=== PATIENT | male | born 1975 | race Caucasian/White ===

== ENCOUNTER 2017-06-04 01:49 | Emergency (ER) | payer MEDICAID, OTHER, SELFPAY ==
[2017-06-04 01:59] VITALS: BP 130/98
--- NOTE | 2017-06-04 02:03 | EDM.PDOC ---
ED HPI GENERAL MEDICAL PROBLEM - General Chief Complaint: Chemical Exposure Stated Complaint: drank anti freeze Time Seen by Provider: 06/04/17 02:03 - History of Present Illness INITIAL COMMENTS - FREE TEXT/NARRATIVE: 42-year-old male presents emergency room after he accidentally drank antifreeze. Patient thinks he drinks about 4 ounces of antifreeze. He had this in a water bottle and then he had a soda pop sit in by he fell asleep where he was working and when he awoke he reached for the bottle and it wasn't a soda bottle it was antifreeze bottle. Patient denies any drugs or alcohol at this time but states he is not thinking right and his speech is not normal. He thinks the ingestion time was about 30 minutes ago. - Related Data Allergies Allergy/AdvReac Type Severity Reaction Status Date / Time No Known Allergies Allergy Verified 06/04/17 01:59 Home Meds: Home Meds Albuterol [Proventil HFA] 6.7 gm INH Q4H PRN #1 inhaler 10/23/15 [Rx] Past Medical History - Past Health History Medical/Surgical History: Denies Medical/Surgical History Respiratory History: Reports: Asthma - Past Surgical History HEENT Surgical History: Reports: Naso-Sinus Surgery Social & Family History - Tobacco Use Smoking Status *Q: Current Every Day Smoker Years of Tobacco use: 20 Packs/Tins Daily: 1 Second Hand Smoke Exposure: No - Caffeine Use Caffeine Use: Reports: None - Recreational Drug Use Recreational Drug Use: No ED ROS GENERAL - Review of Systems Review Of Systems: See Below Constitutional: Denies: Fever, Chills HEENT: Reports: No Symptoms Respiratory: Reports: No Symptoms Cardiovascular: Reports: No Symptoms Endocrine: Reports: No Symptoms GI/Abdominal: Reports: No Symptoms : Reports: No Symptoms Musculoskeletal: Reports: No Symptoms Skin: Reports: No Symptoms Neurological: Reports: Trouble Speaking, Other (Thought abnormalities) Psychiatric: Denies: Homicidal Ideation, Suicidal Ideation Hematologic/Lymphatic: Reports: No Symptoms ED EXAM, BURN/SMOKE INHALATION - Physical Exam Exam: See Below Exam Limited By: No Limitations General Appearance: Alert, No Apparent Distress, Other (His speech is not normal he is trying to cooperate) Eye Exam: Bilateral Eye: Normal Inspection Ears (Abbreviated): Normal External Exam, Normal Canal, Normal TMs Nose: Undetermined: Normal Inspection Mouth/Throat: No: Bleeding, Dental Trauma, Dry Mucous Membrane, Pharyngeal Erythema, Throat Pain, Tonsillar Erythema, Tonsillar Exudates Head: Atraumatic, Normocephalic Neck: Normal, Supple, Non-Tender to Palpation Respiratory: No Respiratory Distress, Lungs Clear, Normal Breath Sounds Cardiovascular: Regular Rate, Rhythm, No Edema, No Murmur GI/Abdominal: Normal Bowel Sounds, Soft, Non-Tender Back Exam: Normal Inspection. No: CVA Tenderness (L), CVA Tenderness (R) Extremities: Normal Inspection, No Pedal Edema Neurological: Alert Psychiatric: Anxious Course - Vital Signs Last Recorded V/S: Last Vital Signs Temp 36.7 C 06/04/17 01:55 Pulse 89 06/04/17 01:55 Resp 18 06/04/17 01:55 BP 130/98 H 06/04/17 01:55 Pulse Ox - Orders/Labs/Meds Orders: Active Orders 24 hr Category Date Time Status EKG Documentation Completion [RC] STAT Care 06/04/17 02:36 Ordered Head wo Cont [CT] Stat Exams 06/04/17 02:36 Ordered ACETAMINOPHEN [CHEM] Stat Lab 06/04/17 02:16 Ordered COMPREHENSIVE METABOLIC PN,CMP [CHEM] Stat Lab 06/04/17 02:16 Ordered DRUG SCREEN, URINE [URCHEM] Stat Lab 06/04/17 02:16 Uncollected ETHANOL BLOOD MEDICAL [CHEM] Stat Lab 06/04/17 02:16 Ordered MAGNESIUM [CHEM] Stat Lab 06/04/17 02:16 Ordered MISC TEST Stat Lab 06/04/17 02:58 Ordered OSMOLALITY,SERUM [CHEM] Stat Lab 06/04/17 02:16 Ordered OSMOLALITY,URINE [URCHEM] Stat Lab 06/04/17 02:16 Uncollected SALICYLATE [CHEM] Stat Lab 06/04/17 02:16 Ordered UA W/MICROSCOPIC [URIN] Stat Lab 06/04/17 02:16 Uncollected Loading Dose Med 06/04/17 02:30 Ordered Fomepizole 1 gm Sodium Chloride 0.9% [Normal Saline] 100 ml IV Q12HR Sodium Chloride 0.9% [Normal Saline] 1,000 ml Med 06/04/17 03:00 Active IV ASDIRECTED Medication Orders Fomepizole 1 gm/ Sodium (Chloride) 101 mls @ 200 mls/hr IV Q12HR FERNANDA Last Admin: 06/04/17 02:54 Dose: 200 mls/hr Sodium Chloride (Normal Saline) 1,000 mls @ 125 mls/hr IV ASDIRECTED FERNANDA Last Admin: 06/04/17 02:55 Dose: 125 mls/hr Labs: Laboratory Tests 06/04/17 Range/Units 02:28 Puncture Site Lt radial ABG pH 7.42 (7.35-7.45) ABG pCO2 34.9 L (35.0-45.0) mmHg ABG pO2 97.0 (80.0-100.0) mmHg ABG HCO3 22.4 (22.0-26.0) meq/L ABG O2 Saturation 98.1 H (96.0-97.0) % ABG Base Excess -1.0 (-2-2.0) FiO2 21.00 (21.00-100.00) % Meds: Medications Generic Name Dose Route Start Last Admin Trade Name Freq PRN Reason Stop Dose Admin Fomepizole 1 gm/ Sodium 101 mls @ 200 mls/hr 06/04/17 02:30 06/04/17 02:54 Chloride IV 200 mls/hr Q12HR FERNANDA Administration Sodium Chloride 1,000 mls @ 125 mls/hr 06/04/17 03:00 06/04/17 02:55 Normal Saline IV 125 mls/hr ASDIRECTED FERNANDA Administration Discontinued Medications Generic Name Dose Route Start Last Admin Trade Name Freq PRN Reason Stop Dose Admin Lactated Ringer's 1,000 mls @ 125 mls/hr 06/04/17 02:30 06/04/17 02:33 Ringers, Lactated IV 125 mls/hr ASDIRECTED [facility] Administration - Re-Assessments/Exams Free Text/Narrative Re-Assessment/Exam: 06/04/17 03:14 He is reviewed with poison control will start the patient on Antizol with possible dialysis needed and a remote location it was decided the patient's best interest to arrange transport to [facility] in [facility]. Head CT and labs pending at this point we cannot obtain an ethylene glycol level here however this will be a send out and lab will attempt to calculate the osmolar gap. Case discussed with Dr. Wheeler in the emergency room at [facility]. Departure - Departure Time of Disposition: 02:30 Disposition: DC/Tfer to Acute Hospital 02 Clinical Impression: Ethylene glycol poisoning - Discharge Information Forms: ED Department Discharge - My Orders Last 24 Hours: My Active Orders 06/04/17 02:16 ACETAMINOPHEN [CHEM] Stat COMPREHENSIVE METABOLIC PN,CMP [CHEM] Stat DRUG SCREEN, URINE [URCHEM] Stat ETHANOL BLOOD MEDICAL [CHEM] Stat MAGNESIUM [CHEM] Stat OSMOLALITY,SERUM [CHEM] Stat OSMOLALITY,URINE [URCHEM] Stat SALICYLATE [CHEM] Stat UA W/MICROSCOPIC [URIN] Stat 06/04/17 02:30 Loading Dose Fomepizole 1 gm Sodium Chloride 0.9% [Normal Saline] 100 ml IV Q12HR 06/04/17 02:36 EKG Documentation Completion [RC] STAT Head wo Cont [CT] Stat 06/04/17 02:58 MISC TEST Stat 06/04/17 03:00 Sodium Chloride 0.9% [Normal Saline] 1,000 ml IV ASDIRECTED - Assessment/Plan Last 24 Hours: My Active Orders 06/04/17 02:16 ACETAMINOPHEN [CHEM] Stat COMPREHENSIVE METABOLIC PN,CMP [CHEM] Stat DRUG SCREEN, URINE [URCHEM] Stat ETHANOL BLOOD MEDICAL [CHEM] Stat MAGNESIUM [CHEM] Stat OSMOLALITY,SERUM [CHEM] Stat OSMOLALITY,URINE [URCHEM] Stat SALICYLATE [CHEM] Stat UA W/MICROSCOPIC [URIN] Stat 06/04/17 02:30 Loading Dose Fomepizole 1 gm Sodium Chloride 0.9% [Normal Saline] 100 ml IV Q12HR 06/04/17 02:36 EKG Documentation Completion [RC] STAT Head wo Cont [CT] Stat 06/04/17 02:58 MISC TEST Stat 06/04/17 03:00 Sodium Chloride 0.9% [Normal Saline] 1,000 ml IV ASDIRECTED
[2017-06-04] MEDS ORDERED: Lactated Ringers 1,000 ML IV SCH (02:30)
[2017-06-04] MEDS ORDERED: Sodium Chloride 0.9% 1,000 ML IV SCH (03:00)
[2017-06-04 03:38] LABS: ACETAMINOPHEN 0 ug/mL (10-30)
--- NOTE | 2017-06-04 09:09 | CT ---
Head CT Technique: Multiple axial sections through the brain were obtained. Intravenous contrast was not utilized. Findings: Motion artifact is present. Within this limitation, no abnormal parenchymal densities are seen at this time. No evidence of intracranial hemorrhage. No midline shift or mass effect is seen. Bone window settings were reviewed which show no acute calvarial abnormality. Mucosal thickening is seen within portions of the ethmoid sinuses. Impression: 1. Mild sinus findings which are likely pre-existing and chronic. 2. Motion artifact. 3. No acute intracranial abnormality is identified. Diagnostic code #2 I agree with preliminary report issued by [facility] ([facility] report finalized on 06/04/17, 4:41 AM Central Time)
== END 2017-06-04 03:49 ==
LOC: JD.ED 01:49
DX: T15.81XA Foreign body in other and multiple parts of external eye, right eye, initial encounter (principal)
CPT/HCPCS: 36415; 36600; 70450; 80053; 80306; 81001; 82803; 83735; 83930; 83935; 93005; 96361; 96365; 99285; G0480; J1451; J7030; J7040; J7120; 93010; 99284

== ENCOUNTER 2018-11-05 16:50 | Emergency (ER) | payer BC, MEDICAID ==
[2018-11-05] MEDS ORDERED: Sodium Chloride 0.9% 10 ML Syringe FLUSH PRN (17:50)
[2018-11-05] MEDS ORDERED: Atropine/Diphenoxylate 0.025-2.5 MG Tab PO ONE (17:51)
[2018-11-05] MEDS ORDERED: Sodium Chloride 0.9% 1,000 ML IV SCH ×2 (18:00→19:15)
--- NOTE | 2018-11-05 18:15 | EDM.PDOC ---
<Suraj,Fransico Rebecca - Last Filed: 11/05/18 17:52> ED HPI GENERAL MEDICAL PROBLEM - General Chief Complaint: Fever Stated Complaint: FLU SX Time Seen by Provider: 11/05/18 17:32 Source of Information: Reports: Patient, Family, RN Notes Reviewed - History of Present Illness INITIAL COMMENTS - FREE TEXT/NARRATIVE: 43 year old male presented to the ER with complaints of cold symptoms with diarrhea for the past week. He "felt sick" with the stomach flu and then it moved to a cold. He developed a fever and increased palpitations today. He has has been taking pepto for the the diarrhea last dose was about 3 hours ago. The palpitations are what makes him worried. They started out mild but have intensified and became more sharp. He is not sure what is going on. His blood pressure at this time is elevate 150/100's. He does have nasal congestion, ears have been fine until examined now the left one does hurt a little. Onset: Today (fever and increased intensity with the palpitations), Gradual ( Has had symptoms of gastric upset and cold for the past week.) Onset Date: 11/05/18 - Related Data Allergies Allergy/AdvReac Type Severity Reaction Status Date / Time No Known Allergies Allergy Verified 11/05/18 17:12 Home Meds: Home Meds Diphenoxylate HCl/Atropine [Lomotil] 1 tab PO Q6H PRN #12 tablet 11/05/18 [Rx] Magnesium Chloride [Slow-Mag] 71.5 mg PO BID 5 Days #10 tablet. 11/05/18 [Rx] Past Medical History - Past Health History Medical/Surgical History: Denies Medical/Surgical History Respiratory History: Reports: Asthma - Past Surgical History HEENT Surgical History: Reports: Naso-Sinus Surgery Social & Family History - Tobacco Use Smoking Status *Q: Former Smoker Used Tobacco, but Quit: Yes Month/Year Tobacco Last Used: 2019 - Caffeine Use Caffeine Use: Reports: Coffee - Recreational Drug Use Recreational Drug Use: No ED ROS GENERAL - Review of Systems Review Of Systems: See Below Constitutional: Reports: Fever, Malaise HEENT: Reports: Rhinitis Cardiovascular: Reports: Palpitations Endocrine: Reports: Fatigue GI/Abdominal: Reports: Diarrhea, Decreased Appetite : Reports: No Symptoms Musculoskeletal: Reports: No Symptoms Skin: Reports: No Symptoms Neurological: Reports: No Symptoms Psychiatric: Reports: No Symptoms Hematologic/Lymphatic: Reports: No Symptoms Immunologic: Reports: No Symptoms ED EXAM, GI/ABD - Physical Exam Exam: See Below Exam Limited By: No Limitations General Appearance: Alert, WD/WN, No Apparent Distress Eyes: Bilateral: Normal Appearance, EOMI Ears: Normal External Exam, Normal Canal (Left ear does have a small area of redness noted midcanal), Hearing Grossly Normal, Normal TMs (Left TM is injected at the 100 o'clock position. ) Nose: Normal Inspection, Normal Mucosa, No Blood, Nasal Drainage (White mucous noted ) Throat/Mouth: Normal Inspection, Normal Lips, Normal Teeth, Normal Gums, Normal Voice, No Airway Compromise Head: Atraumatic, Normocephalic Neck: Normal Inspection, Supple, Non-Tender, Full Range of Motion. No: Lymphadenopathy (L), Lymphadenopathy (R) Respiratory/Chest: No Respiratory Distress, Lungs Clear, Normal Breath Sounds, No Accessory Muscle Use, Chest Non-Tender Cardiovascular: Normal Peripheral Pulses, Regular Rate, Rhythm, No Edema, No Gallop, No JVD, No Murmur, No Rub GI/Abdominal Exam: Normal Bowel Sounds (hyperactive ), Soft, Non-Tender, No Organomegaly (Male) Exam: Deferred Rectal (Males) Exam: Deferred Back Exam: Normal Inspection, Full Range of Motion Extremities: Normal Inspection, Normal Range of Motion, Non-Tender, No Pedal Edema, Normal Capillary Refill Neurological: Alert, Oriented, CN II-XII Intact, Normal Cognition, Normal Gait, No Motor/Sensory Deficits Psychiatric: Normal Affect, Normal Mood Skin Exam: Warm, Dry, Intact, Normal Color, No Rash Lymphatic: No Adenopathy Course - Vital Signs Last Recorded V/S: Last Vital Signs Temp 100.2 F 11/05/18 17:11 Pulse 83 11/05/18 17:11 Resp 16 11/05/18 17:11 BP 166/102 H 11/05/18 17:11 Pulse Ox 95 11/05/18 17:11 - Orders/Labs/Meds Orders: Active Orders 24 hr Category Date Time Status Lisinopril [Prinivil] Med 11/05/18 19:45 Active 5 mg PO DAILY Sodium Chloride 0.9% [Normal Saline] 1,000 ml Med 11/05/18 18:00 Active IV ASDIRECTED Sodium Chloride 0.9% [Normal Saline] 1,000 ml Med 11/05/18 19:15 Active IV ASDIRECTED Sodium Chloride 0.9% [Saline Flush] Med 11/05/18 17:50 Active 10 ml FLUSH ASDIRECTED PRN Saline Lock Insert [OM.PC] Routine Oth 11/05/18 17:50 Ordered Medication Orders Sodium Chloride (Normal Saline) 1,000 mls @ 999 mls/hr IV ASDIRECTED FERNANDA Last Admin: 11/05/18 18:09 Dose: 999 mls/hr Sodium Chloride (Normal Saline) 1,000 mls @ 999 mls/hr IV ASDIRECTED FERNANDA Last Admin: 11/05/18 19:16 Dose: 999 mls/hr Lisinopril (Prinivil) 5 mg PO DAILY FERNANDA Sodium Chloride (Saline Flush) 10 ml FLUSH ASDIRECTED PRN PRN Reason: Keep Vein Open Last Admin: 11/05/18 18:06 Dose: 10 ml Labs: Laboratory Tests 11/05/18 11/05/18 Range/Units 18:05 18:05 WBC 4.51 (4.23-9.07) K/mm3 RBC 4.54 L (4.63-6.08) M/mm3 Hgb 14.4 (13.7-17.5) gm/L Hct 42.1 (40.1-51.0) % MCV 92.7 H (79.0-92.2) fl MCH 31.7 (25.7-32.2) pg MCHC 34.2 (32.2-35.5) g/dl RDW Std Deviation 42.0 (35.1-43.9) fL Plt Count 192 (163-337) K/mm3 MPV 10.5 (9.4-12.3) fl Neut % (Auto) 70.5 H (34.0-67.9) % Lymph % (Auto) 14.4 L (21.8-53.1) % Jessamine % (Auto) 10.9 (5.3-12.2) % Eos % (Auto) 3.8 (0.8-7.0) Baso % (Auto) 0.2 (0.1-1.2) % Neut # (Auto) 3.18 (1.78-5.38) K/mm3 Lymph # (Auto) 0.65 L (1.32-3.57) K/mm3 Jessamine # (Auto) 0.49 (0.30-0.82) K/mm3 Eos # (Auto) 0.17 (0.04-0.54) K/mm3 Baso # (Auto) 0.01 (0.01-0.08) K/mm3 Sodium 139 (136-145) mEq/L Potassium 3.7 (3.5-5.1) mEq/L Chloride 102 (98-107) mEq/L Carbon Dioxide 25 (21-32) mEq/L Anion Gap 15.7 H (5-15) BUN 13 (7-18) mg/dL Creatinine 0.9 (0.7-1.3) mg/dL Est Cr Clr Drug Dosing 113.88 mL/min Estimated GFR (MDRD) > 60 (>60) mL/min BUN/Creatinine Ratio 14.4 (14-18) Glucose 90 (74-106) mg/dL Calcium 8.3 L (8.5-10.1) mg/dL Magnesium 1.4 L (1.8-2.4) mg/dl Total Bilirubin 0.6 (0.2-1.0) mg/dL AST 41 H (15-37) U/L ALT 55 (16-63) U/L Alkaline Phosphatase 99 (46-116) U/L Total Protein 7.6 (6.4-8.2) g/dl Albumin 3.8 (3.4-5.0) g/dl Globulin 3.8 gm/dL Albumin/Globulin Ratio 1.0 (1-2) Meds: Medications Generic Name Dose Route Start Last Admin Trade Name Freq PRN Reason Stop Dose Admin Sodium Chloride 1,000 mls @ 999 mls/hr 11/05/18 18:00 11/05/18 18:09 Normal Saline IV 999 mls/hr ASDIRECTED FERNANDA Administration Sodium Chloride 1,000 mls @ 999 mls/hr 11/05/18 19:15 11/05/18 19:16 Normal Saline IV 999 mls/hr ASDIRECTED FERNANDA Administration Lisinopril 5 mg 11/05/18 19:45 Prinivil PO DAILY FERNANDA Sodium Chloride 10 ml 11/05/18 17:50 11/05/18 18:06 Saline Flush FLUSH 10 ml ASDIRECTED PRN Administration Keep Vein Open Discontinued Medications Generic Name Dose Route Start Last Admin Trade Name Freq PRN Reason Stop Dose Admin Diphenoxylate HCl/Atropine 2 tab 11/05/18 17:51 11/05/18 18:04 Lomotil 0.025-2.5 Mg PO 11/05/18 17:52 2 tab ONETIME ONE Administration Ibuprofen 800 mg 11/05/18 19:11 11/05/18 19:16 Motrin PO 11/05/18 19:12 800 mg ONETIME ONE Administration Magnesium Oxide 400 mg 11/05/18 19:00 11/05/18 19:13 Magnesium Oxide PO 11/05/18 19:01 400 mg ONETIME ONE Administration Departure - Departure Disposition: Home, Self-Care 01 Clinical Impression: Dehydration, Hypomagnesemia Diarrhea Qualifiers: Diarrhea type: unspecified type Qualified Code(s): R19.7 - Diarrhea, unspecified - Discharge Information Prescriptions: Diphenoxylate HCl/Atropine [Lomotil] 1 tab PO Q6H PRN #12 tablet PRN Reason: Diarrhea Magnesium Chloride [Slow-Mag] 71.5 mg PO BID 5 Days #10 tablet.dr Instructions: Diarrhea, Adult, Hypomagnesemia, Food Choices to Help Relieve Diarrhea, Adult, Dehydration, Adult, [id number] Referrals: Jordin Peoples MD [Primary Care Provider] - Forms: ED Department Discharge Additional Instructions: You have been diagnosis with dehydration, low magnesium, diarrhea and fever unknown cause. Take Lomotil as needed for diarrhea. - My Orders Last 24 Hours: My Active Orders 11/05/18 17:50 Sodium Chloride 0.9% [Saline Flush] 10 ml FLUSH ASDIRECTED PRN Saline Lock Insert [OM.PC] Routine 11/05/18 18:00 Sodium Chloride 0.9% [Normal Saline] 1,000 ml IV ASDIRECTED 11/05/18 19:15 Sodium Chloride 0.9% [Normal Saline] 1,000 ml IV ASDIRECTED 11/05/18 19:45 Lisinopril [Prinivil] 5 mg PO DAILY - Assessment/Plan Last 24 Hours: My Active Orders 11/05/18 17:50 Sodium Chloride 0.9% [Saline Flush] 10 ml FLUSH ASDIRECTED PRN Saline Lock Insert [OM.PC] Routine 11/05/18 18:00 Sodium Chloride 0.9% [Normal Saline] 1,000 ml IV ASDIRECTED 11/05/18 19:15 Sodium Chloride 0.9% [Normal Saline] 1,000 ml IV ASDIRECTED 11/05/18 19:45 Lisinopril [Prinivil] 5 mg PO DAILY <Evelio Potts - Last Filed: 11/05/18 19:29> Course - Radiology Interpretation Free Text/Narrative:: 43-year-old male presents to the ED for evaluation of 1 week history of illness gradually getting worse. He has had flulike symptoms with nausea vomiting and diarrhea but today developed fever and some chills.. He also appreciates palpitations. He has hypertension but is in denial about using medication to treat it. She was seen in consultation with nurse practitioner Manuela Blanc . His ECG does not show any signs of cardiac arrhythmia. Plan he appears volume depleted. He will have IV fluids given and labs to be done. - Re-Assessments/Exams Free Text/Narrative Re-Assessment/Exam: 11/05/18 18;30: I have reviewed the lab results. He is mildly hypomagnesemic and he has received 400 mg of magnesium orally. She he he will also be started on Slow-Mag 1 tablet daily. Advised that his blood pressure is too high and in fact he is going to require antihypertensive treatment. He is feeling better after 2 L of IV fluids. Influenza screen is negative. I agree with treatment plan and disposition. - My Orders Last 24 Hours: My Active Orders 11/05/18 17:50 Sodium Chloride 0.9% [Saline Flush] 10 ml FLUSH ASDIRECTED PRN Saline Lock Insert [OM.PC] Routine 11/05/18 18:00 Sodium Chloride 0.9% [Normal Saline] 1,000 ml IV ASDIRECTED 11/05/18 19:15 Sodium Chloride 0.9% [Normal Saline] 1,000 ml IV ASDIRECTED 11/05/18 19:45 Lisinopril [Prinivil] 5 mg PO DAILY - Assessment/Plan Last 24 Hours: My Active Orders 11/05/18 17:50 Sodium Chloride 0.9% [Saline Flush] 10 ml FLUSH ASDIRECTED PRN Saline Lock Insert [OM.PC] Routine 11/05/18 18:00 Sodium Chloride 0.9% [Normal Saline] 1,000 ml IV ASDIRECTED 11/05/18 19:15 Sodium Chloride 0.9% [Normal Saline] 1,000 ml IV ASDIRECTED 11/05/18 19:45 Lisinopril [Prinivil] 5 mg PO DAILY <Manuela Blanc - Last Filed: 11/05/18 19:48> ED HPI GENERAL MEDICAL PROBLEM - History of Present Illness INITIAL COMMENTS - FREE TEXT/NARRATIVE: He has a history of high B/P but doesn't take anything for it. He denies any abdominal pain, chest pain or SOB. Duration: Getting Worse Location: Reports: Abdomen Quality: Reports: Ache Severity: Mild Improves with: Reports: None Worsens with: Reports: None Associated Symptoms: Reports: Fever/Chills, Other (diarrhea and body aches.). Denies: Nausea/Vomiting, Rash ED ROS GENERAL - Review of Systems Review Of Systems: See Below Course - Re-Assessments/Exams Free Text/Narrative Re-Assessment/Exam: 11/05/18 19:13 43 y/o male presented to ER with cc having diarrhea not feeling well for the past week. He had a new onset fever today along with palpitations. His WBC 4.51 H & H 14.4/42.1 Na+ 139 K+ 3.7 Bun 13 creatine 0.9 Magnesium 1.4. He received 2 LT NS, magnesium and Lomotil and his condition improved. I will discharge home with slow-mag and Lomotil. I instructed him to increase his fluid intake. Instructed him to follow up with his PCP for further evaluation and treatment of his HTN. Patient verbalized understanding and is comfortable with plan for discharge. He is stable at time of discharge. Instructed him to return to the ER for any new or acute worsening symptoms. Departure - Departure Time of Disposition: 19:48 Condition: Good - Discharge Information *PRESCRIPTION DRUG MONITORING PROGRAM REVIEWED*: Not Applicable *COPY OF PRESCRIPTION DRUG MONITORING REPORT IN PATIENT JOSEPHINE: Not Applicable
[2018-11-05] MEDS ORDERED: Magnesium Oxide 400 MG Tab PO ONE (19:00)
[2018-11-05] MEDS ORDERED: Ibuprofen 800 MG Tab PO ONE (19:11)
[2018-11-05] MEDS ORDERED: Lisinopril 10 MG Tab PO SCH (19:45)
[2018-11-05 20:28] VITALS: BP 139/87
== END 2018-11-05 20:30 | disposition home or self-care (01) ==
LOC: JD.ED 16:50
DX: E86.0 Dehydration (principal); R19.7 Diarrhea, unspecified; E83.42 Hypomagnesemia
CPT/HCPCS: 36415; 80053; 83735; 85025; 87804; 96360; 96361; 99283; A9270; J7040; 99284

== ENCOUNTER 2020-11-13 10:34 | Emergency (ER) | payer BC, MEDICAID ==
[2020-11-13 10:42] VITALS: PULSE 82
[2020-11-13] MEDS ORDERED: Aspirin 81 MG Tab.Chew PO ONE (10:55)
--- NOTE | 2020-11-13 10:58 | EDM.PDOC ---
ED HPI GENERAL MEDICAL PROBLEM - General Chief Complaint: Chest Pain Stated Complaint: CHEST PAIN Time Seen by Provider: 11/13/20 10:44 Source of Information: Reports: Patient, Family (spouse) History Limitations: Reports: No Limitations - History of Present Illness INITIAL COMMENTS - FREE TEXT/NARRATIVE: 45-year-old male presents to the ED complaining of diffuse left precordial chest pain that started about an hour ago. He describes as a tight squeezing sensation in his left upper anterior chest. He was sitting watching TV with his when this occurred. He states he has had it before. He has a history of frequent premature ventricular contractions and was aware of his heart skipping at this time. Did not feel dizzy lightheaded or short of breath and did not break out in a sweat. No associated nausea or vomiting. Pain is still present but he states is somewhat better rates it as a 4 out of 10 at present. Triage ECG shows no signs of acute ischemia. There are frequent unifocal PVCs. He denies any chest wall injury. He has no history of COVID-19 illness. Patient takes no home medications. He denies any significant problems with GERD or reflux. Onset: Today, Sudden Onset Date: 11/13/20 Onset Time: 09:40 Duration: Minutes:, Constant, Improving Location: Reports: Chest Quality: Reports: Ache (Left precordial chest with no radiation of the pain elsewhere.), Other Severity: Moderate (Wheezing pressure type pain.) Improves with: Reports: None Worsens with: Reports: None (10.) Context: Denies: Activity, Exercise, Lifting, Sick Contact, Trauma, Other Associated Symptoms: Reports: Chest Pain. 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 [No Known Home Meds] 11/13/20 [History] Past Medical History - Past Health History Medical/Surgical History: Denies Medical/Surgical History Cardiovascular History: Reports: Hypertension Respiratory History: Reports: Asthma - Past Surgical History HEENT Surgical History: Reports: Naso-Sinus Surgery Social & Family History - Tobacco Use Tobacco Use Status *Q: Current Every Day Tobacco User Years of Tobacco use: 20 Packs/Tins Daily: 1 - Caffeine Use Caffeine Use: Reports: Coffee - Recreational Drug Use Recreational Drug Use: No - Living Situation & Occupation Living situation: Reports: Occupation: Unemployed ED ROS GENERAL - Review of Systems Review Of Systems: See Below Constitutional: Reports: No Symptoms HEENT: Reports: No Symptoms Respiratory: Reports: No Symptoms Cardiovascular: Reports: Chest Pain Endocrine: Reports: No Symptoms (See history of present illness) GI/Abdominal: Reports: No Symptoms : Reports: No Symptoms Musculoskeletal: Reports: No Symptoms Skin: Reports: No Symptoms Neurological: Reports: No Symptoms Psychiatric: Reports: No Symptoms Hematologic/Lymphatic: Reports: No Symptoms Immunologic: Reports: No Symptoms ED EXAM, GENERAL - Physical Exam Exam: See Below Exam Limited By: No Limitations General Appearance: Alert, WD/WN, No Apparent Distress, Other (Temperature is 36.3 degrees. Heart rate 82 and sinus respiratory is 14 O2 sats 100% room air. BP 160/98 mildly elevated.) Eye Exam: Bilateral Eye: Normal Inspection (No scleral icterus or blepharal pallor.), PERRL Throat/Mouth: Normal Inspection, Normal Lips, Normal Oropharynx Head: Atraumatic, Normocephalic Neck: Normal Inspection, Supple, Non-Tender, Full Range of Motion. No: Lymphadenopathy (L), Lymphadenopathy (R) Respiratory/Chest: No Respiratory Distress, Lungs Clear, Normal Breath Sounds, No Accessory Muscle Use, Chest Non-Tender, Other (Wall tenderness elicited mildly over palpation of the fourth rib midclavicular line left side.) Cardiovascular: Normal Peripheral Pulses, Regular Rate, Rhythm, No Edema, No Gallop, No Murmur, No Rub Peripheral Pulses: 3+: Carotid (L), Carotid (R), Posterior Tibial (L), Posterior Tibial (R), Dorsalis Pedis (L), Dorsalis Pedis (R) GI/Abdominal: Normal Bowel Sounds, Soft, Non-Tender, No Organomegaly, No Distention, No Abnormal Bruit, Other (No surgical scars.) (Male) Exam: No Hernia Back Exam: Normal Inspection, Full Range of Motion. No: CVA Tenderness (L), CVA Tenderness (R) Extremities: Normal Inspection, Normal Range of Motion, Non-Tender, No Pedal Edema, Normal Capillary Refill Neurological: Alert, Oriented, CN II-XII Intact, Normal Cognition Psychiatric: Normal Affect, Normal Mood Skin Exam: Warm, Intact, Normal Color, No Rash #1 Interpretation EKG Date: 11/13/20 Time: 10:37 Rhythm: NSR Rate (Beats/Min): 83 (Multifocal PVCs occasional) [place]: Normal P-Wave: Enlarged (Left atrial hypertrophy pattern) QRS: Normal ST-T: Other (Diffuse repolarization pattern nonspecific T wave flattening aVL) EKG Interpretation Comments: Abnormal ECG with no signs of ischemia. Course - Vital Signs Last Recorded V/S: Last Vital Signs Temp 36.3 C 11/13/20 10:39 Pulse 82 11/13/20 10:39 Resp 17 11/13/20 13:20 BP 123/68 11/13/20 13:20 Pulse Ox 97 11/13/20 13:20 - Orders/Labs/Meds Orders: Active Orders 24 hr Category Date Time Status Dextrose 5%-0.9% NaCl [Dextrose 5%-Normal Saline] 1,000 Med 11/13/20 11:00 Active ml IV ASDIRECTED Ketorolac [Toradol] Med 11/13/20 11:30 Active 30 mg IVPUSH ONETIME Nitroglycerin/D5W [Nitroglycerin 25 MG/D5W 250 ML] Med 11/13/20 11:00 Active 25 mg in 250 ml IV TITRATE Medication Orders Dextrose/Sodium Chloride (Dextrose 5%-Normal Saline) 1,000 mls @ 150 mls/hr IV ASDIRECTED FERNANDA Last Admin: 11/13/20 11:12 Dose: 150 mls/hr Documented by: RUTH ANN Nitroglycerin/Dextrose (Nitroglycerin 25 Mg/D5w 250 Ml) 25 mg in 250 mls @ 6 mls/hr IV TITRATE FERNANDA Last Admin: 11/13/20 11:10 Dose: 10 mcg/min, 6 mls/hr Documented by: RUTH ANN Ketorolac Tromethamine (Ketorolac 30 Mg/Ml Sdv) 30 mg IVPUSH ONETIME [facility] Labs: Laboratory Tests 11/13/20 11/13/20 11/13/20 Range/Units 11:14 11:14 11:14 WBC 4.09 L (4.23-9.07) K/mm3 RBC 4.71 (4.63-6.08) M/mm3 Hgb 14.5 (13.7-17.5) gm/dl Hct 43.5 (40.1-51.0) % MCV 92.4 H (79.0-92.2) fl MCH 30.8 (25.7-32.2) pg MCHC 33.3 (32.2-35.5) g/dl RDW Std Deviation 45.7 H (35.1-43.9) fL Plt Count 202 (163-337) K/mm3 MPV 10.2 (9.4-12.3) fl Neut % (Auto) 50.8 (34.0-67.9) % Lymph % (Auto) 32.8 (21.8-53.1) % [place] % (Auto) 12.5 H (5.3-12.2) % Eos % (Auto) 3.7 (0.8-7.0) Baso % (Auto) 0.2 (0.1-1.2) % Neut # (Auto) 2.08 (1.78-5.38) K/mm3 Lymph # (Auto) 1.34 (1.32-3.57) K/mm3 [place] # (Auto) 0.51 (0.30-0.82) K/mm3 Eos # (Auto) 0.15 (0.04-0.54) K/mm3 Baso # (Auto) 0.01 (0.01-0.08) K/mm3 PT 10.9 (9.7-12.0) SECONDS INR 1.02 APTT 25.7 (21.7-31.4) SECONDS D-Dimer, Quantitative (0.19-0.50) mg/L Sodium 141 (136-145) mEq/L Potassium 4.4 (3.5-5.1) mEq/L Chloride 103 (98-107) mEq/L Carbon Dioxide 30 (21-32) mEq/L Anion Gap 12.4 (5-15) BUN 17 (7-18) mg/dL Creatinine 0.9 (0.7-1.3) mg/dL Est Cr Clr Drug Dosing 111.56 mL/min Estimated GFR (MDRD) > 60 (>60) mL/min BUN/Creatinine Ratio 18.9 H (14-18) Glucose 104 (74-106) mg/dL Calcium 8.3 L (8.5-10.1) mg/dL Magnesium 1.7 L (1.8-2.4) mg/dl Total Bilirubin 0.5 (0.2-1.0) mg/dL AST 17 (15-37) U/L ALT 38 (16-63) U/L Alkaline Phosphatase 104 (46-116) U/L CK-MB (CK-2) 0.8 (0-3.6) ng/ml Troponin I < 0.017 (0.00-0.056) ng/mL C-Reactive Protein 0.7 (<1.0) mg/dL NT-Pro-B Natriuret Pep (0-125) pg/mL Total Protein 7.5 (6.4-8.2) g/dl Albumin 3.7 (3.4-5.0) g/dl Globulin 3.8 gm/dL Albumin/Globulin Ratio 1.0 (1-2) 11/13/20 11/13/20 Range/Units 11:14 11:14 WBC (4.23-9.07) K/mm3 RBC (4.63-6.08) M/mm3 Hgb (13.7-17.5) gm/dl Hct (40.1-51.0) % MCV (79.0-92.2) fl MCH (25.7-32.2) pg MCHC (32.2-35.5) g/dl RDW Std Deviation (35.1-43.9) fL Plt Count (163-337) K/mm3 MPV (9.4-12.3) fl Neut % (Auto) (34.0-67.9) % Lymph % (Auto) (21.8-53.1) % [place] % (Auto) (5.3-12.2) % Eos % (Auto) (0.8-7.0) Baso % (Auto) (0.1-1.2) % Neut # (Auto) (1.78-5.38) K/mm3 Lymph # (Auto) (1.32-3.57) K/mm3 [place] # (Auto) (0.30-0.82) K/mm3 Eos # (Auto) (0.04-0.54) K/mm3 Baso # (Auto) (0.01-0.08) K/mm3 PT (9.7-12.0) SECONDS INR APTT (21.7-31.4) SECONDS D-Dimer, Quantitative < 0.19 L (0.19-0.50) mg/L Sodium (136-145) mEq/L Potassium (3.5-5.1) mEq/L Chloride (98-107) mEq/L Carbon Dioxide (21-32) mEq/L Anion Gap (5-15) BUN (7-18) mg/dL Creatinine (0.7-1.3) mg/dL Est Cr Clr Drug Dosing mL/min Estimated GFR (MDRD) (>60) mL/min BUN/Creatinine Ratio (14-18) Glucose (74-106) mg/dL Calcium (8.5-10.1) mg/dL Magnesium (1.8-2.4) mg/dl Total Bilirubin (0.2-1.0) mg/dL AST (15-37) U/L ALT (16-63) U/L Alkaline Phosphatase (46-116) U/L CK-MB (CK-2) (0-3.6) ng/ml Troponin I (0.00-0.056) ng/mL C-Reactive Protein (<1.0) mg/dL NT-Pro-B Natriuret Pep 27 (0-125) pg/mL Total Protein (6.4-8.2) g/dl Albumin (3.4-5.0) g/dl Globulin gm/dL Albumin/Globulin Ratio (1-2) Meds: Medications Generic Name Dose Route Start Last Admin Trade Name Freq PRN Reason Stop Dose Admin Dextrose/Sodium Chloride 1,000 mls @ 150 mls/hr 11/13/20 11:00 11/13/20 11:12 Dextrose 5%-Normal Saline IV 150 mls/hr ASDIRECTED FERNANDA Administration Nitroglycerin/Dextrose 25 mg in 250 mls @ 6 mls/hr 11/13/20 11:00 11/13/20 11:10 Nitroglycerin 25 Mg/D5w 250 Ml IV 10 mcg/min TITRATE FERNADNA 6 mls/hr Administration 10 MCG/MIN Ketorolac Tromethamine 30 mg 11/13/20 11:30 Ketorolac 30 Mg/Ml Sdv IVPUSH ONETIME FERNANDA Discontinued Medications Generic Name Dose Route Start Last Admin Trade Name Isamar PRN Reason Stop Dose Admin Aspirin 324 mg 11/13/20 10:55 11/13/20 11:12 Aspirin 81 Mg Tab.Chew PO 11/13/20 10:56 324 mg ONETIME ONE Administration - Radiology Interpretation Free Text/Narrative:: 45-year-old male presents to the ED with a 1 hour history of left precordial chest squeezing pressure discomfort. Patient states he is known to have frequent premature ventricular contractions which bother him intermittently. He was sitting watching TV when this came on. No recent travel history to be concerning for DVT. No history of DVT. No history of known coronary artery disease. He is a non-smoker. Examination is completely normal other than slight pain on palpation over the fourth rib midclavicular line left side. Lungs are clear to all station percussion. ECG shows occasional unifocal PVCs. He does not show any signs of ischemia. Plan for aspirins chewed for total of 324 mg. Nitroglycerin drip at 10 mcg/min. Toradol 30 mg IV for pain relief. Chest x-ray portable. Routine labs including cardiac markers and D-dimer. - Re-Assessments/Exams Free Text/Narrative Re-Assessment/Exam: 11/13/20 11:45: Chest x-ray is done portably. He does have mild cardiomegaly and slight bulbous heart. There is evidence of mild diffuse vascular congestion pattern with no pleural effusion. No true pulmonary infiltrate evident.White count is normal at 4.09. The differential shows 50.8% neutrophils on the auto differential. Hemoglobin 14.5 with hematocrit of 43.5. MCV is slightly elevat ed at 92.4. Platelet count 202,000. Sodium 141 with potassium of 4.4 chloride 103 with a bicarb of 30. Anion gap is 12.4 with a BUN of 17 and a creatinine of 0.9 GFR is greater than 60. Glucose is 104 with a calcium of 8.3 magnesium slightly low at 1.7. Liver function normal. CK-MB fraction 0.8 with a troponin I of less than 0.017. C-reactive protein is 0.7 total protein 7.5. Due to the appearance of vascular congestion on chest x-ray a serum BNP will be ordered at this time 11/13/20 12:15: Precordial chest pain is completely gone at this point time. His monitor does continue to show intermittent unifocal PVCs. O2 sats are 96 to 97% on room air BP 112/66. Awaiting his BNP. . 11/13/20 12:43 BNP is low at 27. Feeling fine. He will therefore be discharged to home. He has plans to arrange for cardiology consultation as he has been seen by them in the past. His heart is a bit enlarged on chest x-ray which may be due to magnification due to portable technique. Departure - Departure Time of Disposition: 12:48 Disposition: Home, Self-Care 01 Reason for Transfer *Q: Other Condition: Fair Clinical Impression: Non-cardiac chest pain Instructions: Nonspecific Chest Pain, Adult Referrals: Jordin Peoples MD [Primary Care Provider] - Forms: ED Department Discharge Additional Instructions: Evaluation in the emergency room today in regards to the development of left precordial chest pain which was quite squeezing and intense while at home doing nothing this morning. ECG did not show any acute signs of injury to the heart muscle. Chest x-ray shows the heart is perhaps slightly enlarged on chest x-ray but it can be magnified on portable technique. All of the rest of the lab test revealed no indication of heart related illness. You do have tenderness over the fourth left anterior rib in the midclavicular line and I suspect the cause is musculoskeletal or pain from the lining of the rib called the periosteum. It may bother you off and on for up to 3 to 4 weeks. Suggest Motrin 600 mg every 6 hours or Aleve 2 tablets every 8 hours to relieve pain or inflammation. If course of the pain becomes more intense and is not improved with Motrin or Aleve return to the ED for evaluation. Sepsis Event Note (ED) - Evaluation Sepsis Screening Result: No Definite Risk - Focused Exam Vital Signs: Vital Signs Temp Pulse Resp BP Pulse Ox 11/13/20 13:20 17 123/68 97 11/13/20 10:39 36.3 C 82 14 160/98 H 100 - My Orders Last 24 Hours: My Active Orders 11/13/20 11:00 Dextrose 5%-0.9% NaCl [Dextrose 5%-Normal Saline] 1,000 ml IV ASDIRECTED Nitroglycerin/D5W [Nitroglycerin 25 MG/D5W 250 ML] 25 mg in 250 ml IV TITRATE 11/13/20 11:30 Ketorolac [Toradol] 30 mg IVPUSH ONETIME - Assessment/Plan Last 24 Hours: My Active Orders 11/13/20 11:00 Dextrose 5%-0.9% NaCl [Dextrose 5%-Normal Saline] 1,000 ml IV ASDIRECTED Nitroglycerin/D5W [Nitroglycerin 25 MG/D5W 250 ML] 25 mg in 250 ml IV TITRATE 11/13/20 11:30 Ketorolac [Toradol] 30 mg IVPUSH ONETIME
[2020-11-13] MEDS ORDERED: Dextrose 5%-0.9% NaCl 1,000 ML IV SCH (11:00)
[2020-11-13] MEDS ORDERED: Nitroglycerin/D5W 25 MG/250 ML BOTTLE IV SCH (11:00)
[2020-11-13] MEDS ORDERED: Ketorolac 30 MG/ML SDV IVPUSH SCH (11:30)
--- NOTE | 2020-11-13 11:36 | CR ---
Chest: Portable view of the chest was obtained. Comparison: Prior chest x-ray of 10/23/15. Heart size and mediastinum are normal. Lungs are clear with no acute parenchymal change. No acute osseous finding is appreciated. Impression: 1. Nothing acute is seen on portable chest x-ray. Diagnostic code #1
[2020-11-13 13:26] VITALS: BP 123/68
== END 2020-11-13 13:20 | disposition home or self-care (01) ==
LOC: JD.ED 10:34
DX: R07.89 Other chest pain (principal); R07.2 Precordial pain; I10 Essential (primary) hypertension; J45.909 Unspecified asthma, uncomplicated; R94.31 Abnormal electrocardiogram [ECG] [EKG]; Z72.0 Tobacco use
CPT/HCPCS: 36415; 71045; 80053; 82553; 83735; 83880; 84484; 85025; 85379; 85610; 85730; 86140; 93005; 96365; 96366; 99285; A9270; J3490; J7042; 93010; 99284

== ENCOUNTER 2022-06-17 16:52 | Emergency (ER) | payer MEDICAID ==
[2022-06-17 18:29] VITALS: BP 162/114; PULSE 58
== END 2022-06-17 19:29 | disposition home or self-care (01) ==
LOC: JD.ED 16:52
DX: K02.9 Dental caries, unspecified (principal); I10 Essential (primary) hypertension; J45.909 Unspecified asthma, uncomplicated; Z88.8 Allergy status to other drugs, medicaments and biological substances; Z79.899 Other long term (current) drug therapy
CPT/HCPCS: 99283

== ENCOUNTER 2022-08-05 07:07 | Emergency (ER) | payer MEDICAID, OTHER ==
[2022-08-05] MEDS ORDERED: Dexamethasone 4 MG/ML SDV IVPUSH ONE (07:38)
[2022-08-05] MEDS ORDERED: Dextrose 5%-0.9% NaCl 1,000 ML IV SCH (07:45)
[2022-08-05] MEDS: Albuterol/Ipratropium 3.0-0.5 MG/3 ML Neb Soln NEB PRN ×2 (07:47→08:18)
[2022-08-05] MEDS ORDERED: Albuterol/Ipratropium 3.0-0.5 MG/3 ML Neb Soln NEB PRN (08:10)
[2022-08-05 08:22] LABS: CORONAVIRUS COVID-19 NAA NEGATIVE (NEGATIVE)
[2022-08-05] MEDS ORDERED: Magnesium Sulfate/Water 2 GM in Premix Bag 1 BAG IV ONE (08:32)
[2022-08-05 08:33] LABS: ESTIMATED GFR 107 mL/min (>60)
[2022-08-05] MEDS ORDERED: Albuterol 0.5% 2.5 MG/0.5 ML Neb Soln NEB ONE (08:33)
[2022-08-05 10:59] VITALS: BP 156/94; PULSE 62
== END 2022-08-05 10:59 | disposition home or self-care (01) ==
LOC: JD.ED 07:07
DX: J45.901 Unspecified asthma with (acute) exacerbation (principal); J06.9 Acute upper respiratory infection, unspecified; I10 Essential (primary) hypertension; F17.210 Nicotine dependence, cigarettes, uncomplicated; Z79.899 Other long term (current) drug therapy; Z88.8 Allergy status to other drugs, medicaments and biological substances; Z20.822 Contact with and (suspected) exposure to COVID-19
CPT/HCPCS: 0241U; 36415; 71045; 80053; 83735; 83880; 85025; 86140; 93005; 94640; 96365; 96366; 96375; 99284; J1100; J3475; J7042; J7620-GY

== ENCOUNTER 2024-11-07 17:58 | Emergency (ER) | payer OTHER ==
[2024-11-07 18:25] LABS: BASOPHILS ABSOLUTE AUTO 0.1 K/mm3 (0.0-0.2); BASOPHILS PERCENT AUTO 0.8 % (0.0-1.0); EOSINOPHILS ABSOLUTE AUTO 0.2 K/mm3 (0.0-0.4); EOSINOPHILS PERCENT AUTO 3.7 % (0.0-6.0); HEMATOCRIT 38.4 % (42.0-52.0); HEMOGLOBIN 13.5 gm/dl (14.0-18.0); IMMATURE GRAN ABSOLUTE AUTO 0.01 K/mm3 (0.00-0.05); IMMATURE GRAN PERCENT AUTO 0.2 % (0.0-0.4); LYMPHOCYTES ABSOLUTE AUTO 1.9 K/mm3 (1.0-4.8); MEAN CORPUSCULAR HEMOGLOBIN 32.8 pg (28.0-32.0); MEAN CORPUSCULAR HGB CONC 35.2 g/dl (32.0-36.0); MEAN CORPUSCULAR VOLUME 93.4 fl (83.0-99.0); MEAN PLATELET VOLUME 11.1 fl (9.4-12.4); MONOCYTES ABSOLUTE AUTO 0.7 K/mm3 (0.0-0.8); MONOCYTES PERCENT AUTO 11.2 % (0.0-8.0); NEUTROPHILS ABSOLUTE AUTO 3.2 K/mm3 (1.8-7.7); NEUTROPHILS PERCENT AUTO 53.1 % (41.0-71.0); PLATELET COUNT,PLT 199 K/mm3 (150-400); RED BLOOD CELL COUNT 4.11 M/mm3 (4.52-5.90); WHITE BLOOD CELL COUNT,WBC 5.96 K/mm3 (3.9-11.3)
[2024-11-07 18:52] LABS: A/G RATIO 0.9 (1-2); ALBUMIN 3.3 g/dl (3.4-5.0); ANION GAP 15.5 (5-15); BILIRUBIN TOTAL 0.9 mg/dL (0.2-1.0); BUN/CREATININE RATIO 23.1 (14-18); CALCIUM 8.8 mg/dL (8.5-10.1); CREATININE 1.3 mg/dL (0.7-1.3); EST CRCL DRUG DOSING (CG) 71.75 mL/min; MAGNESIUM 1.6 mg/dL (1.8-2.4); POTASSIUM,K 3.5 mEq/L (3.5-5.1); PROTEIN TOTAL,TP 7.2 g/dl (6.4-8.2)
[2024-11-07] MEDS: Sodium Chloride 0.9% 1,000 ML IV SCH (19:17)
[2024-11-07] MEDS: Magnesium Oxide 400 MG Tab PO ONE (19:17)
[2024-11-07] MEDS: Lactated Ringers 1,000 ML IV ONE (20:30)
[2024-11-07 21:41] VITALS: BP 116/60; PULSE 60
== END 2024-11-07 21:33 | disposition home or self-care (01) ==
LOC: JD.ED 17:58
DX: I49.3 Ventricular premature depolarization (principal); K21.9 Gastro-esophageal reflux disease without esophagitis; I10 Essential (primary) hypertension; J45.909 Unspecified asthma, uncomplicated; Z88.8 Allergy status to other drugs, medicaments and biological substances; Z79.899 Other long term (current) drug therapy; Z87.891 Personal history of nicotine dependence
CPT/HCPCS: 36415; 71045; 80053; 83735; 84484; 85025; 93005; 93246; 96360; 96361; 99285; A9270; J7030; J7120; 93010; 99283

== ENCOUNTER 2025-02-12 19:41 | Emergency (ER) | payer OTHER ==
[2025-02-12] MEDS ORDERED: Sodium Chloride 0.9% 10 ML Syringe FLUSH PRN (20:04)
[2025-02-12 20:15] LABS: BASOPHILS ABSOLUTE AUTO 0.0 K/mm3 (0.0-0.2); BASOPHILS PERCENT AUTO 0.7 % (0.0-1.0); EOSINOPHILS ABSOLUTE AUTO 0.2 K/mm3 (0.0-0.4); EOSINOPHILS PERCENT AUTO 2.6 % (0.0-6.0); IMMATURE GRAN ABSOLUTE AUTO 0.01 K/mm3 (0.00-0.05); IMMATURE GRAN PERCENT AUTO 0.2 % (0.0-0.4); LYMPHOCYTES ABSOLUTE AUTO 1.5 K/mm3 (1.0-4.8); LYMPHOCYTES PERCENT AUTO 25.6 % (24.0-44.0); MEAN PLATELET VOLUME 10.8 fl (9.4-12.4); MONOCYTES ABSOLUTE AUTO 1.1 K/mm3 (0.0-0.8); MONOCYTES PERCENT AUTO 19.5 % (0.0-8.0); NEUTROPHILS ABSOLUTE AUTO 3.0 K/mm3 (1.8-7.7); NEUTROPHILS PERCENT AUTO 51.4 % (41.0-71.0); NRBC ABSOLUTE 0.00 (0.00-0.02); NRBC PERCENT 0.0 % (0.0-0.2); PLATELET COUNT,PLT 183 K/mm3 (150-400); RED BLOOD CELL COUNT 4.13 M/mm3 (4.52-5.90); WHITE BLOOD CELL COUNT,WBC 5.74 K/mm3 (3.9-11.3)
[2025-02-12 20:49] LABS: A/G RATIO 1.0 (1-2); ALANINE AMINOTRANSFERASE,ALT 69.0 U/L (16-63); ASPARTATE AMNIOTRANSFERASE,AST 37.0 U/L (15-37); BILIRUBIN TOTAL 0.6 mg/dL (0.2-1.0); BLOOD UREA NITROGEN,BUN 22.0 mg/dL (7-18); CARBON DIOXIDE,CO2 27.0 mEq/L (21-32); CHLORIDE,CL 101.0 mEq/L (98-107); CREATININE 0.8 mg/dL (0.7-1.3); EST CRCL DRUG DOSING (CG) 116.6 mL/min; ESTIMATED GFR 109.0 mL/min (>60); GLUCOSE RANDOM 81.0 mg/dL (70-99); POTASSIUM,K 4.1 mEq/L (3.5-5.1); PROTEIN TOTAL,TP 7.3 g/dl (6.4-8.2); SODIUM,NA 136.0 mEq/L (136-145); TROPONIN I HIGH SENSITIVITY 13.0 pg/mL (<=76); TSH 2.409 uIU/mL (0.358-3.74)
[2025-02-12 21:42] LABS: APPEARANCE,URINE CLEAR (Clear); GLUCOSE,URINE NEGATIVE (Negative); OCCULT BLOOD,URINE NEGATIVE (Negative)
[2025-02-12 21:51] LABS: BUPRENORPHINE SCREEN,URINE NEGATIVE (CUTOFF=10); METHADONE SCREEN, URINE NEGATIVE (CUT0FF=200); METHAMPHETAMINES SCREEN, URINE NEGATIVE (CUTOFF=500); OXYCODONE SCREEN,URINE NEGATIVE (CUT0FF=100); THC SCREEN,URINE 20 NG/ML NEGATIVE (CUTOFF=50)
[2025-02-12 21:53] LABS: AMPHETAMINES SCREEN, URINE NEGATIVE (CUTOFF=500)
[2025-02-12 22:39] VITALS: BP 122/81; PULSE 56
== END 2025-02-12 22:05 | disposition home or self-care (01) ==
LOC: JD.ED 19:41
DX: R42 Dizziness and giddiness (principal); R00.2 Palpitations; I10 Essential (primary) hypertension; K21.9 Gastro-esophageal reflux disease without esophagitis; F17.200 Nicotine dependence, unspecified, uncomplicated; Z88.8 Allergy status to other drugs, medicaments and biological substances; Z79.899 Other long term (current) drug therapy
CPT/HCPCS: 36415; 71045; 80053; 80306; 81003; 83735; 84443; 84484; 85025; 93005; 96360; 96361; 99284; J7030